=== PATIENT | female | born 1995 | race Caucasian/White ===

== ENCOUNTER 2019-10-07 18:01 | Emergency (ER) | payer OTHER, SELFPAY ==
--- NOTE | 2019-10-07 18:11 | ED.GENADULT ---
HPI - General Adult General Chief complaint: Neck Pain/Injury Stated complaint: neck pain Time Seen by Provider: 10/07/19 18:11 History of Present Illness HPI narrative: A 24 y/o female, who is right handed nonsmoker and nondrinker, presents to the ED with worsening r lateral upper shoulder/ neck pain for the past 3 days. She states that she carreis a 10mo, 10kg infant and woke up with some mild neck pain to the base of her neck 3 days ago, but that since it has become more severe and began to radiated into her shoulders. . She also notes that taking a hot shower helped to alleviate her pain and that laying in the same position aggravated her pain. She denies any gait changes, sore throat, numbness, weakness, finger pain, wrist pain, and all other medical complaints at this time.- but she did have brief tactile fever with URI last week. MD complaint: Neck pain Onset (ago): day(s) (3) Location: neck Radiation: other (shoulders) Pain Consistency: other (worsening) Relieving factors: other (taking a hot shower) Exacerbating factors: immobilization Associated symptoms: fever/chills (resolved) Treatments prior to arrival: heat therapy Related Data Allergies Allergy/AdvReac Type Severity Reaction Status Date / Time amoxicillin Allergy Hives Verified 10/07/19 18:22 carbinoxamine [From [facility]] Allergy Hives Verified 10/07/19 18:22 Penicillins Allergy Hives Verified 10/07/19 18:22 pseudoephedrine [From [facility]] Allergy Hives Verified 10/07/19 18:22 Sulfa (Sulfonamide Allergy Hives Verified 10/07/19 18:22 Antibiotics) Review of Systems Review of Systems: Narrative: General/Constitutional: No weight loss,fever Eyes: N0: Redness,discharge Ears/Nose/Throat: No: Epistaxis,ear discharge Respiratory: Denies: Hemoptysis Gastrointestinal: No Vomiting, Bleeding-rectal Skin: No Lumps, eruption Neurologic: No Focal Weakness,Sz Hematologic: Denies: Petechiae/Purpura Psychiatric: No: Suicida ideationl All Other Systems: Reviewed and Negative PMFSH Comments At time of signature, agree with nursing past medical, surgical, social and family history. There is no relevant family history pertinent to the presenting complaint Exam Narrative: Exam Narrative: General Appearance: Well appearing, Conjunctiva clear Ears: External ear normal Nose: Normal nose Mouth/Throat: Normal appearing, Normal lips Neck: Supple, SROM/ FAROM , no midline tenderness Respiratory: Airway patent Abdomen: Soft Musculoskeletal: Normal strength 5/5 : Bi-tri, Spine/Back: R supraspinatus and paraspinal muscle tender with mild decreased range of motion; Skin: Normal color Neurological: A&O x3, CN II-XII intact, Normal reflexes (symmetric, 2+ Bi, trace Tri) Psychiatric: Normal mood Course Vital Signs Vital signs: Vital Signs Temperature 98.6 F 10/07/19 18:15 Pulse Rate 114 H 10/07/19 18:15 Respiratory Rate 10/07/19 18:15 Blood Pressure 160/84 H 10/07/19 18:15 Pulse Oximetry 99 10/07/19 18:15 Temperature 98.6 F 10/07/19 18:15 Pulse Rate 114 H 10/07/19 18:15 Respiratory Rate 20 10/07/19 18:15 Blood Pressure 160/84 H 10/07/19 18:15 Pulse Oximetry 99 10/07/19 18:15 Medical Decision Making Vital Signs Vital Signs: Vital Signs Temperature 98.6 F 10/07/19 18:15 Pulse Rate 114 H 10/07/19 18:15 Respiratory Rate 10/07/19 18:15 Blood Pressure 160/84 H 10/07/19 18:15 Pulse Oximetry 99 10/07/19 18:15 Temperature 98.6 F 10/07/19 18:15 Pulse Rate 114 H 10/07/19 18:15 Respiratory Rate 10/07/19 18:15 Blood Pressure 160/84 H 10/07/19 18:15 Pulse Oximetry 99 10/07/19 18:15 Discharge Plan Discharge Clinical Impression: Strain of neck muscle Qualifiers: Encounter type: initial encounter Qualified Code(s): S16.1XXA - Strain of muscle, fascia and tendon at neck level, initial encounter Patient Disposition: Home, Self-Care Condition: Stable Instructions: Cervical St
[2019-10-07 18:15] VITALS: BP 160/84; PULSE 114; RESP 20; TEMP 37; O2SAT 99
== END 2019-10-07 18:42 | disposition home or self-care (01) ==
PROVIDERS: Emergency Provider Emergency Medicine
DX: S16.1XXA Strain of muscle, fascia and tendon at neck level, initial encounter (principal); X58.XXXA Exposure to other specified factors, initial encounter
CPT/HCPCS: 99203; G0463